=== PATIENT | male | born 1980 | race Hispanic/Latino ===

== ENCOUNTER 2021-03-31 16:02 | Emergency (ER) | payer OTHER ==
[~2021-03-31] VITALS: Ht 180.3 cm; Wt 90.7 kg
[2021-03-31 16:24] LABS: HEMATOCRIT 41.8 % (42-54); LYMPHOCYTES % (AUTO) 33.3 % (21.0-51.0); MEAN CORPUSCULAR HEMOGLOBIN 28.4 pg (27.0-33.0); MEAN CORPUSCULAR HGB CONC 33.7 g/dL (32.0-36.0); MEAN CORPUSCULAR VOLUME 84.3 fL (79-99); MONOCYTES % (AUTO) 9.8 % (3.0-13.0); NEUTROPHILS % (AUTO) 50.6 % (40.0-77.0); PLATELET COUNT (AUTO) 308 K/uL (130-400); RED BLOOD CELL COUNT(AUTO) 4.96 MIL/uL (4.50-6.20); RED CELL DISTRIBUTION WIDTH 11.7 % (11.0-15.5); WHITE BLOOD COUNT (AUTO) 5.8 K/uL (4.8-10.8)
[2021-03-31] MEDS ORDERED: KETOROLAC 15MG/ML VIAL (15MG/ML) IV ONE (16:30)
[2021-03-31 16:42] LABS: CREATININE 0.9 mg/dL (0.5-1.5); POTASSIUM 3.7 mmol/L (3.5-5.1)
[2021-03-31 16:44] LABS: B-TYPE NATRIURETIC PEPTIDE < 5 pg/mL (0-100)
[2021-03-31 16:52] LABS: ALBUMIN 4.1 g/dL (3.5-5.0); BILIRUBIN,TOTAL 0.2 mg/dL (0.2-1.0); TOTAL PROTEIN, SERUM 7.6 g/dL (6.0-8.3)
[2021-03-31] MEDS ORDERED: IOHEXOL-350 75 ML VIAL IV ONE (17:55)
[2021-03-31 19:16] VITALS: BP 124/68
== END 2021-03-31 19:17 | disposition home or self-care (01) ==
LOC: EDH 16:02
DX: R07.89 Other chest pain (principal); R09.1 Pleurisy; Z90.49 Acquired absence of other specified parts of digestive tract; Z88.8 Allergy status to other drugs, medicaments and biological substances
CPT/HCPCS: 36415; 71045; 71260; 80053; 83880; 84484; 85025; 85378; 93005; 96374; 99285; J1885; Q9967

== ENCOUNTER 2023-04-09 10:39 | Emergency (ER) | payer OTHER ==
[~2023-04-09] VITALS: Ht 180.3 cm; Wt 92.5 kg
[2023-04-09 10:41] VITALS: O2SAT 100
[2023-04-09 10:45] VITALS: BP 140/78; PULSE 94; RESP 15
[2023-04-09 11:21] LABS: BASOPHILS # (AUTO) 0.06 K/uL (0.00-0.20); BASOPHILS % (AUTO) 0.5 % (0.0-5.0); CREATININE 0.9 mg/dL (0.5-1.5); EOSINOPHILS # (AUTO) 0.05 K/uL (0.00-0.70); EOSINOPHILS % (AUTO) 0.4 % (0.0-8.0); HEMATOCRIT 42.8 % (42-54); IMMATURE GRANULOCYTE ABSOLUTE 0.05 K/uL (0-1); LYMPHOCYTES # (AUTO) 1.6 K/uL (1.0-4.8); LYMPHOCYTES % (AUTO) 14.4 % (21.0-51.0); MEAN CORPUSCULAR HEMOGLOBIN 28.7 pg (27.0-33.0); MEAN CORPUSCULAR HGB CONC 34.1 g/dL (32.0-36.0); MEAN CORPUSCULAR VOLUME 84.1 fL (79-99); MONOCYTES % (AUTO) 8.5 % (3.0-13.0); NEUTROPHILS # (AUTO) 8.5 K/uL (1.8-7.7); NEUTROPHILS % (AUTO) 75.8 % (40.0-77.0); PLATELET COUNT (AUTO) 390 K/uL (130-400); POTASSIUM 4.3 mmol/L (3.5-5.1); RED BLOOD CELL COUNT(AUTO) 5.09 MIL/uL (4.50-6.20); RED CELL DISTRIBUTION WIDTH 12.5 % (11.0-15.5); WHITE BLOOD COUNT (AUTO) 11.2 K/uL (4.8-10.8)
[2023-04-09 11:26] LABS: ALBUMIN 3.5 g/dL (3.5-5.0); BILIRUBIN,TOTAL 0.8 mg/dL (0.2-1.0)
[2023-04-09] MEDS ORDERED: KETOROLAC 30MG VIAL (30MG/ML) IVP ONE (11:30)
[2023-04-09] MEDS ORDERED: DEXAMETHASONE SOD PHOSPHATE 4 MG/ML 1ML VIAL IVP ONE (12:00)
[2023-04-09] MEDS ORDERED: 0.9%NACL 1000ML 1,000 ML IV ONE ×2 (12:00→14:00)
[2023-04-09] MEDS ORDERED: IOHEXOL-350 75 ML VIAL IV ONE (12:18)
[2023-04-09 12:56] LABS: APPEARANCE,URINE CLEAR (CLEAR); BILIRUBIN,URINE NEGATIVE (NEGATIVE); GLUCOSE, URINE (UA) NEGATIVE (NEGATIVE); KETONES,URINE 60 mg/dL (NEGATIVE); LEUKOCYTE ESTERASE ,URINE NEGATIVE Leu/uL (NEGATIVE); NITRATE,URINE NEGATIVE (NEGATIVE); OCCULT BLOOD,URINE NEGATIVE (NEGATIVE); PROTEIN,URINE 10 mg/dL (NEGATIVE); UROBILINOGEN,URINE 0.2 mg/dL (0.2-1.0)
[2023-04-09 12:58] LABS: ADD UA MICROSCOPIC YES; COLOR,URINE YELLOW (YELLOW)
[2023-04-09 12:59] LABS: MUCUS,URINE RARE LPF (None Seen); RBC,URINE 0-1 /HPF (0-1); SQUAMOUS EPITHELIAL CELL,UR RARE /HPF (0-2); WBC,URINE 0-1 /HPF (0-1)
[2023-04-09] MEDS ORDERED: CEFTRIAXONE 2GM VIAL IVPB ONE (13:00)
== END 2023-04-09 15:45 | disposition home or self-care (01) ==
LOC: EEVIPCON 10:39 → EDH 10:39
DX: K50.90 Crohn's disease, unspecified, without complications (principal); N50.812 Left testicular pain; Z90.49 Acquired absence of other specified parts of digestive tract; Z98.890 Other specified postprocedural states
CPT/HCPCS: 99285; 74177; 96365; 96375; 96361; 82270; 80053; 83690; 85025; 87040 ×2; 83605 ×2; 81001; 36415; 76870; J1100; J7030; J0696; J1885; Q9967

== ENCOUNTER 2023-05-06 16:18 | Emergency (ER) | payer OTHER ==
[~2023-05-06] VITALS: Ht 177.8 cm; Wt 85.7 kg
[~2023-05-06 16:18] MED LIST: CITA10TA13 PO; SULF500T8 PO
[2023-05-06 19:15] LABS: BASOPHILS # (AUTO) 0.04 K/uL (0.00-0.20); BASOPHILS % (AUTO) 0.6 % (0.0-5.0); EOSINOPHILS # (AUTO) 0.19 K/uL (0.00-0.70); HEMATOCRIT 38.3 % (42-54); IMMATURE GRANULOCYTE ABSOLUTE 0.02 K/uL (0-1); LYMPHOCYTES # (AUTO) 1.4 K/uL (1.0-4.8); LYMPHOCYTES % (AUTO) 22.6 % (21.0-51.0); MEAN CORPUSCULAR HEMOGLOBIN 29.1 pg (27.0-33.0); MEAN CORPUSCULAR VOLUME 83.3 fL (79-99); MONOCYTES # (AUTO) 0.7 K/uL (0.1-1.0); MONOCYTES % (AUTO) 10.4 % (3.0-13.0); NEUTROPHILS % (AUTO) 63.1 % (40.0-77.0); PLATELET COUNT (AUTO) 279 K/uL (130-400); RED CELL DISTRIBUTION WIDTH 12.2 % (11.0-15.5); WHITE BLOOD COUNT (AUTO) 6.4 K/uL (4.8-10.8)
[2023-05-06 19:25] LABS: CREATININE 0.8 mg/dL (0.5-1.5); POTASSIUM 3.9 mmol/L (3.5-5.1)
[2023-05-06 19:29] LABS: ALBUMIN 3.8 g/dL (3.5-5.0); BILIRUBIN,TOTAL 0.3 mg/dL (0.2-1.0); TOTAL PROTEIN, SERUM 7.1 g/dL (6.0-8.3)
[2023-05-06] MEDS ORDERED: IOHEXOL-350 75 ML VIAL IV ONE (19:46)
[2023-05-06] MEDS: ONDANSETRON 4MG INJ IVP ONE (20:16)
[2023-05-06] MEDS: MORPHINE 2 MG SYG IVP ONE (20:16)
[2023-05-06] MEDS: 0.9%NACL 1000ML 1,000 ML IV ONE (20:16)
[2023-05-06] MEDS: PANTOPRAZOLE 40 MG/VIAL IVP ONE (20:17)
[2023-05-06] MEDS ORDERED: LOPE2 PO (20:51)
[2023-05-06] MEDS ORDERED: LACT1CAP70 PO (20:51)
[2023-05-06 21:18] LABS: APPEARANCE,URINE CLEAR (CLEAR); BILIRUBIN,URINE NEGATIVE (NEGATIVE); COLOR,URINE LIGHT-YELLOW (YELLOW); GLUCOSE, URINE (UA) NEGATIVE (NEGATIVE); KETONES,URINE NEGATIVE (NEGATIVE); LEUKOCYTE ESTERASE ,URINE NEGATIVE Leu/uL (NEGATIVE); NITRATE,URINE NEGATIVE (NEGATIVE); OCCULT BLOOD,URINE NEGATIVE (NEGATIVE); PH,URINE 6.5 (5.0-8.0); PROTEIN,URINE NEGATIVE (NEGATIVE); UROBILINOGEN,URINE 0.2 mg/dL (0.2-1.0)
[2023-05-06 21:21] VITALS: BP 130/76; PULSE 69; RESP 16; O2SAT 98
[2023-05-06 21:21] LABS: ADD UA MICROSCOPIC NO
== END 2023-05-06 21:40 ==
LOC: EDH 16:18
DX: R19.7 Diarrhea, unspecified (principal); K62.5 Hemorrhage of anus and rectum; F32.A Depression, unspecified; Z59.7 Insufficient social insurance and welfare support; Z59.00 Homelessness unspecified; Z90.49 Acquired absence of other specified parts of digestive tract
CPT/HCPCS: 99285; 74177; 96374; 96375; 96361; 82270; 80053; 83690; 85025; 81003; 36415; J2270; J7030; J2405; C9113; Q9967

== ENCOUNTER 2024-10-14 09:47 | Emergency (ER) | payer BC, OTHER ==
[~2024-10-14] VITALS: Ht 177.8 cm; Wt 90.7 kg
[~2024-10-14 09:47] MED LIST changes: +LACT1CAP70 PO; +LOPE2 PO
--- NOTE | 2024-10-14 10:14 | ERN ---
ED Note History of Present Illness Stated Complaint: BLOODY STOOLS, LOWER ABD PAIN Chief Complaint: Bloody Stool Time Seen by MD: 10:11 Dictation: PATIENT IS A 43-YEAR-OLD MALE COMING IN TODAY WITH COMPLAINTS OF BLOOD IN HIS DIARRHEA STOOL FOR THE LAST TWO DAYS THAT IS STOPPED THIS MORNING. HE IS ALSO COMPLAINING OF LEFT LOWER QUADRANT TENDERNESS HE HAS HAD SINCE TUESDAY. NO FEVER NO CHILLS NO FLANK PAIN NO CHANGE IN URINATION. 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 CENTENO. STATES HE STOPPED HIS MESALAMINE SEVERAL MONTHS AGO BECAUSE HIS DOCTOR CHANGED. Allergies: Coded Allergies: No Known Drug Allergies (Unverified Allergy, Unknown, 05/06/23) Home Meds Active Scripts Lactobacillus Acidophilus (Probiotic) 10 Billion Cell Capsule, 1 EACH PO DAILY for 30 Days, #3 CAP Prov:RICARDO ROBLERO 05/06/23 Loperamide HCl (Imodium) 2 Mg Cap, 1 CAP PO TID for 3 Days, #9 CAP Prov:RICARDO ROBLERO 05/06/23 Reported Medications Sulfasalazine (Sulfasalazine) 500 Mg Tablet, 500 MG PO BID, TAB 04/29/23 Citalopram Hydrobromide (Celexa) 10 Mg Tablet, 10 MG PO AM, TAB 04/29/23 Past Medical History Past Medical History: Anemia, Other Additional Past Medical Hx: TESTICAL TORTION , CROHNS Surgical History: Appendectomy, Other Surgical History Other: RIGHT WRIST RN Note Reviewed/Agreed w/PFSH: Yes Review of System Dictation CONSTITUTIONAL: NEGATIVE EXCEPT FOR HPI HEAD/FACE: NEGATIVE EXCEPT FOR HPI EENT: NEGATIVE EXCEPT FOR HPI RESPIRATORY: NEGATIVE EXCEPT FOR HPI GASTROINTESTINAL/ABDOMINAL: NEGATIVE EXCEPT FOR HPI LEFT LOWER QUADRANT TENDERNESS BLOOD AND DIARRHEA YESTERDAY GENITOURINARY: NEGATIVE EXCEPT FOR HPI MUSCULOSKELETAL: NEGATIVE EXCEPT FOR HPI INTEGUMENTARY: NEGATIVE EXCEPT FOR HPI NEUROLOGICAL/PSYCH: NEGATIVE EXCEPT FOR HPI HEMATOLOGIC/LYMPHATIC: NEGATIVE EXCEPT FOR HPI ALL SYSTEMS NEGATIVE, EXCEPT NOTED ABOVE. 13 POINT REVIEW OF SYSTEMS ASSESSED AND ALL NEGATIVE EXCEPT FOR ABOVE. Initial Vital Sign VS Vital Signs Date Time Temp Pulse Resp B/P (MAP) Pulse Ox O2 Delivery O2 Flow Rate FiO2 10/14/24 09:48 97.9 87 16 111/77 96 Room Air 0 10/14/24 10:07 21 Physical Exam Dictation VITAL SIGNS REVIEWED GENERAL APPEARANCE: ALERT, ORIENTED X 3, MILD ACUTE DISTRESS, WELL DEVELOPED, NOURISHED. HEAD AND FACE: NON-TRAUMATIC. EYES: PERRL, PINK CONJUNCTIVAS, EYELID NO TRAUMA, ANTERIOR CHAMBER WITH ARCUS SENILIS. EARS: PINNAS INTACT AND NO SIGNS OF TRAUMA OR ERYTHEMA EAR CANALS CLEAR AND NO DISCHARGE TM NO ERYTHEMA NOSE: NO DISCHARGE, NO BLEEDING. OROPHARYNX: MOUTH NORMAL, TONGUE PINK, PHARYNX CLEAR,NO ERYTHEMA, TONSILS NO EXUDATES, NO ABSCESSES NOTED, MUCOUS MEMBRANE MOIST NECK: SUPPLE, NON-TENDER, NO THYROMEGALY, NO MASSES, NO JVD, NO BRUITS BREAST:DEFERRED CHEST:NO TENDERNESS, NO CREPITUS, NO PARADOXICAL MOVEMENT, NO RETRACTIONS LUNGS:CLEAR, WELL-VENTILATED, SYMMETRIC, NO RALES, NO WHEEZING, NO RHONCHI, NO STRIDOR, GOOD BREATH SOUNDS BILATERALLY HEART: REGULAR RATE, REGULAR RHYTHM, NO MURMUR, NO GALLOPS VASCULAR: NO PERIPHERAL EDEMA, ABDOMEN: SOFT, POSITIVE BOWEL SOUNDS, NONDISTENDED, NO GUARDING, MILD LEFT LOWER QUADRANT TENDERNESS, NO REBOUND, NO MASSES NO HEPATOMEGALY, NO SPLENOMEGALY, NO KAPLAN'S SIGN, NO HERNIAS. RECTAL: DEFERRED GENITAL: DEFERRED NEUROLOGICAL: NORMAL SPEECH, MOTOR FUNCTION INTACT, SENSORY FUNCTION INTACT MUSCULOSKELETAL: NECK NONTENDER, FULL RANGE OF MOTION, BACK NONTENDER, FULL RANGE OF MOTION, EXTREMITIES: NONTENDER, FULL RANGE OF MOTION SKIN: COLOR PINK, DRY, NO TURGOR, NO RASH, NO LACERATIONS, NO ABRASIONS, NO CONTUSIONS. LYMPHATIC: DEFERRED Results (Laboratory/Radiology) Laboratory/Radiology Laboratory Tests Test 10/14/24 09:45 10/14/24 10:18 Urine Color YELLOW (YELLOW) Urine Appearance CLEAR (CLEAR) Urine pH 6.0 (5.0-8.0) Urine Specific [place] 1.018 (1.001-1.031) Urine Protein 10 mg/dL (NEGATIVE) H Urine Glucose (UA) NEGATIVE mg/dL (NEGATIVE) Urine Ketones NEGATIVE mg/dL (NEGATIVE) Urine Occult Blood NEGATIVE (NEGATIVE) Urine Nitrate NEGATIVE (NEGATIVE) Urine Bilirubin NEGATIVE mg/dL (NEGATIVE) Urine Urobilinogen 0.2 mg/dL (0.2-1.0) Urine Leukocyte Esterase NEGATIVE Tristen/uL Urine RBC 2-5 /HPF (0-1) H Urine WBC 0-1 /HPF (0-1) Urine Squamous Epithelial Cells RARE /HPF (0-2) Urine Bacteria None /HPF (None Seen) Stool Occult Blood NEGATIVE (NEGATIVE) White Blood Count 5.3 K/uL (4.8-10.8) Red Blood Count 4.81 MIL/uL (4.50-6.20) Hemoglobin 13.7 g/dL (14.0-18.0) L Hematocrit 40.8 % (42-54) L Mean Corpuscular Volume 84.8 fL (79-99) Mean Corpuscular Hemoglobin 28.5 pg (27.0-33.0) Mean Corpuscular Hemoglobin Concent 33.6 g/dL (32.0-36.0) Red Cell Distribution Width 13.6 % (11.0-15.5) Platelet Count 347 K/uL (130-400) Mean Platelet Volume 9.0 fL (7.5-10.5) Immature Granulocyte % (Auto) 0.4 % (0-1) Neutrophils (%) (Auto) 59.6 % (40.0-77.0) Lymphocytes (%) (Auto) 24.3 % (21.0-51.0) Monocytes (%) (Auto) 8.5 % (3.0-13.0) Eosinophils (%) (Auto) 6.4 % (0.0-8.0) Basophils (%) (Auto) 0.8 % (0.0-5.0) Neutrophils # (Auto) 3.2 K/uL (1.8-7.7) Lymphocytes # (Auto) 1.3 K/uL (1.0-4.8) Monocytes # (Auto) 0.5 K/uL (0.1-1.0) Eosinophils # (Auto) 0.34 K/uL (0.00-0.70) Basophils # (Auto) 0.04 K/uL (0.00-0.20) Absolute Immature Granulocyte (auto 0.02 K/uL (0-1) Nucleated Red Blood Cells 0.0 % (0.0-0.19) Sodium Level 143 mmol/L (136-145) Potassium Level 3.9 mmol/L (3.5-5.1) Chloride Level 107 mmol/L (101-111) Carbon Dioxide Level 27 mmol/L (21-32) Blood Urea Nitrogen 6 mg/dL (7-18) L Creatinine 0.8 mg/dL (0.5-1.3) Glomerular Filtration Rate Calc 114 mL/min (>90) Random Glucose 91 mg/dL (70-105) Total Calcium 8.4 mg/dL (8.5-10.1) L Lipase 24 U/L (16-77) IMAGING REPORT Signed PATIENT: AURELIANO ZIEGLER MR#: [id number] : 1980 SEX: M AGE: 43 LOCATION: [facility] ORDER [id number] STATUS: [facility] REPORT#: [id number] SERVICE 1012 REASON: LOWER QUADRANT PAIN TENDERNESS. HISTORY OF CROHN'S ORDERING PHYSICIAN: SINDI WAGONER NP PROCEDURE: ABD PEL W - CT ABDOMEN/PELVIS W/CONTRAST EXAM: CT Abdomen and Pelvis with IV contrast CLINICAL HISTORY: LOWER QUADRANT PAIN TENDERNESS. HISTORY OF CROHN'S TECHNIQUE: Axial computed tomography images of the abdomen and pelvis with intravenous contrast. CONTRAST: with intravenous contrast. COMPARISON: Study date - 05/06/23 FINDINGS: LUNG BASES: Interlobular septal thickening involving bilateral lower lobes. No pleural effusions are seen. LIVER: Tiny calcification foci in the right lobe of the liver are suggestive of granulomatous aetiology. Otherwise unremarkable. GALLBLADDER AND BILE DUCTS: The gallbladder appears within normal limits. No radioopaque gallstones are seen. No biliary ductal dilatation is evident. PANCREAS: Unremarkable. SPLEEN: Tiny calcification foci involving the splenic parenchyma, suggestive of granulomatous aetiology ADRENAL GLANDS: Unremarkable. KIDNEYS, URETERS, AND BLADDER: The kidneys appear within normal limits. There is no hydronephrosis or hydroureter. No urinary calculi are seen. STOMACH AND BOWEL: Unremarkable appearance of the stomach and bowel. No evidence of bowel obstruction. No evidence suggesting enteritis or colitis. Diverticulosis along the descending colon without evidence of diverticulitis. Status post appendectomy. PERITONEUM: No free fluid. No free air. LYMPH NODES: No lymphadenopathy is evident. REPRODUCTIVE: Unremarkable as visualized. VASCULATURE: No evidence of abdominal aortic aneurysm. BONES: No aggressive appearing osseous lesion. No acute osseous pathology evident.IMPRESSION: 1. No acute intraabdominal or pelvic pathology. /[facility] Labs Reviewed?: Yes ED Course ED Course Orders Procedure Category Date Status Time Cbc With Differential LAB 10/14/24 Complete 10:12 Urinalysis Profile LAB 10/14/24 Complete 10:12 Occult Blood Stool LAB 10/14/24 Complete Single Only 10:12 Ct Abdomen/Pelvis CT 10/14/24 Resulted W/Contrast 10:12 0.9%Nacl 1000ml (Ns PHA 10/14/24 Complete 1000ml) 10:30 Morphine 2mg Syg PHA 10/14/24 Complete (Morphine 2mg Syg) 10:30 Ondansetron 4mg Inj PHA 10/14/24 Complete (Zofran 4mg Inj) 10:30 Lipase LAB 10/14/24 Complete 10:12 Basic Metabolic Panel LAB 10/14/24 Complete 10:12 Iohexol (Omnipaque) PHA 10/14/24 Complete 11:20 Current Medications Medications (Trade) Dose Ordered Sig/Torsten Route PRN Reason Start Time Stop Time Status Last Admin Dose Admin Iohexol (Omnipaque) 75 ml STK-MED ONCE IV 10/14/24 11:20 10/14/24 11:20 DC Morphine Sulfate (morPHINE 2MG SYG) 2 mg ONCE ONCE IVP 10/14/24 10:30 10/14/24 10:31 DC 10/14/24 10:22 Ondansetron HCl (zoFRAN 4MG INJ) 4 mg ONCE ONCE IVP 10/14/24 10:30 10/14/24 10:31 DC 10/14/24 10:22 Sodium Chloride 1,000 ml @ 0 mls/hr ONCE ONCE IV 10/14/24 10:30 10/14/24 10:31 DC 10/14/24 10:23 Vital Signs Date Time Temp Pulse Resp B/P (MAP) Pulse Ox O2 Delivery O2 Flow Rate FiO2 10/14/24 11:15 97.2 58 12 109/76 100 Room Air* 0 10/14/24 10:07 97.5 80 12 111/75 99 Room Air* 0 10/14/24 09:48 97.9 87 16 111/77 96 Room Air 0 1203/SPOKE WITH DIA AT [facility]. I CALLED REGARDING THE CT REPORT SHE SAID THAT IT WAS BEING READ WE SPEAK AND SHE WOULD HAVE THE REPORT OUT SHORTLY.1220/ 1220/SPOKE WITH PATIENT IN HIS AT LENGTH REGARDING CT FINDINGS LABS AND OCCULT BLOOD. HE IS AWARE THAT THERE WAS NO EVIDENCE OF IBS, CROHN'S NO BLOOD IN THE STOOL NO MELENA. HE WAS ADVISED TO SEE HIS PRIMARY CARE DOCTOR TUESDAY Medical Decision Making MDM MDM: DIFFERENTIAL DIAGNOSIS: IBS/CROHN/LOWER GI BLEED/MELENA/ELECTROLYTE IMBALANCE/DEHYDRATION/DIVERTICULITIS RATIONALE: TESTS CONSIDERED AND ORDERED SECONDARY TO SHARED DECISION MAKING INCLUDE: OCCULT BLOOD/LABS/ PREVIOUS OUTSIDE RECORDS REVIEWED: OLD ER VISITS. RISK OF COMPLICATION AND/OR MORBIDITY OR MORTALITY OF PATIENT MANAGEMENT: NONE MEDICATIONS-PER MEDICATION RECONCILIATION NEED FOR HOSPITALIZATION: PATIENT DOES NOT MEET CRITERIA FOR HOSPITALIZATION. RADIOLOGY NEED FOR EMERGENCY MAJOR/MINOR SURGERY: NO THERE ARE NO SOCIAL CONCERNS WITH THIS PATIENT. PRESCRIPTION DRUG MANAGEMENT NO NONE PRESCRIPTIONS WILL INCLUDE SYMPTOMATIC CARE PATIENT'S PRIOR EXTERNAL MEDICAL RECORDS FROM OTHER ER VISITS WERE REVIEWED BY ME INDICATED. PRIOR TESTING AND RESULTS FROM PREVIOUS VISITS WERE REVIEWED. PRIOR TESTS WERE TAKEN INTO ACCOUNT WITH MEDICAL DECISION MAKING AND RESOURCE UTILIZATION, INDEPENDENT HISTORIAN/HISTORIANS WERE USED TO OBTAIN COMPLETE MEDICAL HISTORY. I INDEPENDENTLY INTERPRETED THE TEST THAT WERE PERFORMED, RESULTS WERE REVIEWED BY ME AND CONSIDERED FINDINGS ON RADIOLOGY IF ORDERED. MEDICAL MANAGEMENT AND EXAMINATION INTERPRETATION DISCUSSIONS WERE HAD BY ME WITH OTHER QUALIFIED HEALTHCARE PROFESSIONALS INDICATED FOR THE PATIENT'S CARE. DX & DISP Disposition: Discharge Departure Impression: Primary Impression: Mild dehydration Additional Impression: Hypocalcemia Condition: Stable Additional Instructions: FOLLOW-UP WITH PRIMARY CARE PROVIDER IN 1 TO 2 DAYS. TAKE MEDICATIONS DIRECTED HERE IN THE EMERGENCY ROOM. OKAY TO CONTINUE HOME MEDICATIONS UNLESS OTHERWISE DISCUSSED DURING YOUR VISIT IN THE EMERGENCY ROOM TODAY. RETURN TO YOUR NEAREST EMERGENCY ROOM IF SYMPTOMS WORSEN OR IF THERE IS NO IMPROVEMENT. CALL 911 IF YOU NEED IMMEDIATE ASSISTANCE. TAKE TYLENOL OR MOTRIN [id number] NEEDED AND IF NO CONTRAINDICATIONS ARE PRESENT. INCREASE ORAL HYDRATION. A WOUND CULTURE OR URINE CULTURE WAS ORDERED HERE IN THE EMERGENCY ROOM DEPARTMENT PLEASE FOLLOW-UP WITH PRIMARY CARE PROVIDER AND ADVISE THEM TO GET REPEAT PORTS FROM OUR FACILITY. IF YOU HAD ANY MAGGIE WRAP/SPLINTS THAT WERE APPLIED HERE, PLEASE DO NOT REMOVE THEM UNTIL YOU SEE YOUR PRIMARY CARE OR SPECIALTY. DIET AND ACTIVITY TOLERATED. FOLLOW UP WITH YOUR PRIMARY CARE DOCTOR ON TUESDAY FOR FOLLOW UP AND MANAGEMENT Referrals: NONE (PCP) Time of Disposition: 12:26 I have reviewed the case, and I agree with, Diagnosis and Plan SINDI WAGONER NP Oct 14, 2024 10:14
[2024-10-14] MEDS: 0.9%NACL 1000ML 1,000 ML IV ONE (10:23)
[2024-10-14 10:34] LABS: IMMATURE GRANULOCYTE ABSOLUTE 0.02 K/uL (0-1); NUCLEATED RED BLOOD CELLS 0.0 % (0.0-0.19); PLATELET COUNT (AUTO) 347 K/uL (130-400); RED BLOOD CELL COUNT(AUTO) 4.81 MIL/uL (4.50-6.20); RED CELL DISTRIBUTION WIDTH 13.6 % (11.0-15.5); WHITE BLOOD COUNT (AUTO) 5.3 K/uL (4.8-10.8)
[2024-10-14 10:42] LABS: CREATININE 0.8 mg/dL (0.5-1.3); GLOMERULAR FILTR. RATE CALC 114.0 mL/min (>90); GLUCOSE,RANDOM 91.0 mg/dL (70-105); SODIUM SERUM 143.0 mmol/L (136-145); UREA NITROGEN, BLOOD 6.0 mg/dL (7-18)
[2024-10-14 10:54] LABS: APPEARANCE,URINE CLEAR (CLEAR); GLUCOSE, URINE (UA) NEGATIVE (NEGATIVE); LEUKOCYTE ESTERASE ,URINE NEGATIVE Leu/uL (NEGATIVE); NITRATE,URINE NEGATIVE (NEGATIVE); OCCULT BLOOD,URINE NEGATIVE (NEGATIVE)
[2024-10-14 11:04] LABS: ADD UA MICROSCOPIC YES
[2024-10-14 11:16] LABS: SQUAMOUS EPITHELIAL CELL,UR RARE /HPF (0-2)
[2024-10-14] MEDS ORDERED: IOHEXOL-350 75 ML VIAL IV ONE (11:20)
--- NOTE | 2024-10-14 12:06 | HMCIMG ---
EXAM: CT Abdomen and Pelvis with IV contrast CLINICAL HISTORY: LOWER QUADRANT PAIN TENDERNESS. HISTORY OF CROHN'S TECHNIQUE: Axial computed tomography images of the abdomen and pelvis with intravenous contrast. CONTRAST: with intravenous contrast. COMPARISON: Study date - 05/06/23 FINDINGS: LUNG BASES: Interlobular septal thickening involving bilateral lower lobes. No pleural effusions are seen. LIVER: Tiny calcification foci in the right lobe of the liver are suggestive of granulomatous aetiology. Otherwise unremarkable. GALLBLADDER AND BILE DUCTS: The gallbladder appears within normal limits. No radioopaque gallstones are seen. No biliary ductal dilatation is evident. PANCREAS: Unremarkable. SPLEEN: Tiny calcification foci involving the splenic parenchyma, suggestive of granulomatous aetiology ADRENAL GLANDS: Unremarkable. KIDNEYS, URETERS, AND BLADDER: The kidneys appear within normal limits. There is no hydronephrosis or hydroureter. No urinary calculi are seen. STOMACH AND BOWEL: Unremarkable appearance of the stomach and bowel. No evidence of bowel obstruction. No evidence suggesting enteritis or colitis. Diverticulosis along the descending colon without evidence of diverticulitis. Status post appendectomy. PERITONEUM: No free fluid. No free air. LYMPH NODES: No lymphadenopathy is evident. REPRODUCTIVE: Unremarkable as visualized. VASCULATURE: No evidence of abdominal aortic aneurysm. BONES: No aggressive appearing osseous lesion. No acute osseous pathology evident.IMPRESSION: 1. No acute intraabdominal or pelvic pathology. /[place]
[2024-10-14 12:47] VITALS: BP 127/70; PULSE 73; RESP 19; TEMP 97.6; O2SAT 100
--- NOTE | 2024-10-14 12:53 | NUR ---
DC PATIENT WAS DC'D BY DR MACHADO TODAY I DC'D PATIENTS IV WITH CATH STILL INTACT AND APPLIED 2X2 GAUZE WITH COBAN I EXPLAINED TO PATIENT TO FOLLOW UP WITH PCP, AND PROVIDED INFO BASED ON DIAGNOSIS, I ALSO ANSWERED ANY FOLLOW UP QUESTIONS THE PATIENT HAD, PATIENT AMBULATED OUT OF ED, NO COMPLICATIONS
== END 2024-10-14 12:51 | disposition home or self-care (01) ==
LOC: EDH 09:47 → EEVIPCON 09:47 → EDH 12:51
DX: E86.0 Dehydration (principal); E83.51 Hypocalcemia; Z90.49 Acquired absence of other specified parts of digestive tract
CPT/HCPCS: 99284; 74177; 96374; 96361; 96375; 80048; 83690; 85025; 82272; 81001; 36415; J2270; J7030; J2405; Q9967; 82270